=== PATIENT | female | born 1985 ===

== ENCOUNTER 2019-04-24 10:42 | Inpatient (IN) ==
[2019-04-24 11:15] LABS: Basophils % 0.4 % (0.0-0.8); Eosinophils % 0.8 % (0.00-10.9); Hemoglobin 10.3 GM/DL (12.0-16.0); Immature Granulocytes % 0.4 %; Immature Granulocytes Absolute 0.02 #; Lymphocytes # 0.9 10*3/uL (1.4-4.0); Lymphocytes % 18.2 % (21.3-54.2); Mean Corpuscular HGB Conc 33.2 GM/DL (32-36); Mean Corpuscular Volume 91.2 FL (87-102); Monocytes % 7.2 % (1.7-12.7); Platelet Count 169 T/CUMM (130-400); Red Cell Distribution Width 16.3 % (9.3-17.3); White Blood Count 5.1 T/CUMM (4-12)
[2019-04-24 11:34] LABS: INR 0.9; PT Patient Result 9.4 SECS; Partial Thromboplastin Time 25.7 SECS (0-40)
[2019-04-24 11:40] LABS: Alanine Aminotransferase 24 U/L (13-56); Albumin 2.7 G/DL (3.4-5.0); Alkaline Phosphatase 180 U/L (45-117); Aspartate Amino Transferase 31 U/L (0-37); Bilirubin,Total < 0.39 MG/DL (0.2-1.0); Blood Urea Nitrogen 9 MG/DL (7-18); Calcium 8.6 MG/DL (8.5-10.1); Glucose 97 MG/DL (74-106); Osmolality,Calculated 279.3 MOS/KG (273-304); Uric Acid 4.8 MG/DL (2.6-6.0)
[2019-04-24] MEDS ORDERED: FAMOTIDINE 20 MG/2 ML VIAL IV ONE (11:47)
[2019-04-24] MEDS ORDERED: ceFAZolin 2,000 MG in SYRINGE 1 EACH IV ONE (11:47)
[2019-04-24] MEDS ORDERED: CITRIC ACID/SODIUM CITRATE 30 ML UDCUP PO ONE (11:47)
[2019-04-24] MEDS: LACTATED RINGERS 1,000 ML IV SCH ×2 (11:52→13:13)
[2019-04-24] MEDS ORDERED: hydrALAZINE 20 MG/1 ML VIAL IV ONE (12:16)
[2019-04-24] MEDS ORDERED: hydrALAZINE 20 MG/1 ML VIAL ONE (12:18)
[2019-04-24] MEDS ORDERED: OXYTOCIN 10 UNIT/ML VIAL IM ONE (12:30)
[2019-04-24] MEDS ORDERED: OXYTOCIN/LR 30 UNIT/1,000 ML BAG IV ONE (12:30)
[2019-04-24 14:20] LABS: Cord Arterial Blood HCO3 21.1 MMOL/L
[2019-04-24 14:21] LABS: Cord Venous Blood PCO2 45.1 MMHG
[2019-04-24] MEDS ORDERED: ACETAMINOPHEN 325 MG TABLET PO PRN (14:29)
[2019-04-24] MEDS ORDERED: RHO(D) IMMUNE GLOBULIN 300 MCG SYRINGE IM ONE (14:29)
[2019-04-24] MEDS ORDERED: ONDANSETRON 4 MG/2 ML VIAL IV PRN (14:29)
[2019-04-24] MEDS ORDERED: OXYTOCIN/LR 20 UNIT/1,000 ML BAG IV ONE (14:29)
[2019-04-24] MEDS ORDERED: ceFAZolin 1,000 MG in SYRINGE 1 EACH IV SCH (14:30)
[2019-04-24] MEDS ORDERED: BUPIVACAINE 0.5% 50 ML VIAL ONE (14:48)
[2019-04-24] MEDS ORDERED: BUPIVACAINE SPINAL 0.75% 2 ML AMP SPINAL ONE (14:48)
[2019-04-24] MEDS ORDERED: MORPHINE 10 MG/10 ML VIAL ONE (14:48)
[2019-04-24] MEDS ORDERED: LIDOCAINE 1% 5 ML VIAL ONE (14:48)
[2019-04-24] MEDS ORDERED: EPINEPHrine 1 MG/ML VIAL ONE (14:49)
[2019-04-24] MEDS ORDERED: DEXAMETHASONE 4 MG/1 ML VIAL ONE (14:49)
[2019-04-24] MEDS ORDERED: ONDANSETRON 4 MG/2 ML VIAL ONE (14:49)
[2019-04-24] MEDS ORDERED: PHENYLEPHRINE 1 MG/10 ML SYRINGE IV ONE (14:49)
[2019-04-24] MEDS ORDERED: LACTATED RINGERS 1,000 ML IV ONE (14:49)
[2019-04-24] MEDS ORDERED: LACTATED RINGERS 1,000 ML IV SCH (15:00)
[2019-04-24] MEDS ORDERED: MEPERIDINE 25 MG/1 ML VIAL IV PRN (17:57)
[2019-04-24] MEDS ORDERED: diphenhydrAMINE 50 MG/1 ML VIAL IV PRN (17:57)
[2019-04-24 20:53] LABS: Basophils % 0.1 % (0.0-0.8); Hematocrit 30.6 VOL% (35.7-47.0); Immature Granulocytes % 0.3 %; Immature Granulocytes Absolute 0.03 #; Lymphocytes # 0.4 10*3/uL (1.4-4.0); Lymphocytes % 4.3 % (21.3-54.2); Mean Corpuscular HGB Conc 32.7 GM/DL (32-36); Mean Corpuscular Volume 90.8 FL (87-102); Mean Platelet Volume 11.1 FL (9.6-12.0); Monocytes % 5.4 % (1.7-12.7); Neutrophils % 89.9 % (38.7-73.9); Platelet Count 156 T/CUMM (130-400); Red Blood Count 3.37 MC/CUMM (3.8-5.5); Red Cell Distribution Width 16.1 % (9.3-17.3); White Blood Count 9.8 T/CUMM (4-12)
[2019-04-24] MEDS: ceFAZolin 1,000 MG in SYRINGE 1 EACH IV SCH (21:00)
[2019-04-24] MEDS: DOCUSATE SODIUM 100 MG CAPSULE PO SCH (21:00)
[2019-04-24 21:17] LABS: Lymphocytes 2 % (20-55); Macrocytosis Slight; Polychromasia Slight; Segmented Neutrophils 96 % (50-85)
[2019-04-24 21:18] LABS: Platelet Estimate Adequate; Total Cells Counted 100
[2019-04-25] MEDS: ceFAZolin 1,000 MG in SYRINGE 1 EACH IV SCH (05:35)
[2019-04-25 05:56] LABS: Basophils % 0.1 % (0.0-0.8); Hematocrit 27.3 VOL% (35.7-47.0); Hemoglobin 8.8 GM/DL (12.0-16.0); Immature Granulocytes % 0.4 %; Immature Granulocytes Absolute 0.03 #; Lymphocytes # 0.9 10*3/uL (1.4-4.0); Lymphocytes % 11.2 % (21.3-54.2); Mean Corpuscular HGB Conc 32.2 GM/DL (32-36); Mean Corpuscular Volume 92.9 FL (87-102); Mean Platelet Volume 11.2 FL (9.6-12.0); Monocytes % 6.6 % (1.7-12.7); Neutrophils % 81.7 % (38.7-73.9); Platelet Count 149 T/CUMM (130-400); Red Blood Count 2.94 MC/CUMM (3.8-5.5); Red Cell Distribution Width 16.1 % (9.3-17.3)
[2019-04-25] MEDS: MULTIVITAMIN (PRENATAL) TABLET PO SCH (08:40)
[2019-04-25] MEDS: FERROUS SULFATE 325 MG TABLET PO SCH ×2 (08:40→20:22)
[2019-04-25] MEDS: IBUPROFEN 800 MG TABLET PO PRN ×2 (08:41→15:34)
[2019-04-25] MEDS: DOCUSATE SODIUM 100 MG CAPSULE PO SCH ×2 (08:41→20:22)
[2019-04-25] MEDS ORDERED: METOCLOPRAMIDE 10 MG TABLET PO PRN (20:07)
[2019-04-25] MEDS: SIMETHICONE CHEW 80 MG TABLET PO PRN (20:22)
[2019-04-25] MEDS: MAGNESIUM HYDROXIDE SUSP 30 ML UDCUP PO PRN (20:23)
[2019-04-26] MEDS ORDERED: METOCLOPRAMIDE 10 MG TABLET PO SCH (05:00)
[2019-04-26 07:38] VITALS: BP 142/90
[2019-04-26] MEDS: FERROUS SULFATE 325 MG TABLET PO SCH (08:06)
[2019-04-26] MEDS: SIMETHICONE CHEW 80 MG TABLET PO PRN (08:06)
[2019-04-26] MEDS: MULTIVITAMIN (PRENATAL) TABLET PO SCH (08:06)
[2019-04-26] MEDS: MAGNESIUM HYDROXIDE SUSP 30 ML UDCUP PO PRN (08:06)
[2019-04-26] MEDS: DOCUSATE SODIUM 100 MG CAPSULE PO SCH (08:07)
[2019-04-26] MEDS: IBUPROFEN 800 MG TABLET PO PRN (08:07)
[2019-04-26] MEDS ORDERED: DIPH/TET/ACEL PERT BOOSTER VACCINE 0.5 ML VIAL IM ONE ×2 (12:02→12:03)
== END 2019-04-26 12:30 | disposition home or self-care (01) | DRG 788 ==
LOC: N.LDOUT 10:42 → N.LD 10:46 → N.OB 17:07
PROVIDERS: ADMIT Obstetrics & Gynecology; ATTEND Obstetrics & Gynecology
PROC: LDCSECT (ICD-10-PCS; 2019-04-24 12:00)

== ENCOUNTER 2020-03-31 12:11 | Inpatient (IN) ==
[2020-03-31 13:43] LABS: Apearance,Urine CLEAR (Clear); Bilirubin,Urine Negative (Negative); Blood, Urine Negative (Negative); Glucose,Urine (UA) >=500 mg/dL (Negative); Ketones,Urine Negative (Negative); Nitrite,Urine Negative (Negative); Protein,Urine Negative; RBC,Urine <1 /HPF (0-4); Squamous Epithelial Cell,Urine Occasional /HPF (0-10); Urine Color Yellow (Yellow); Urine Specific Gravity 1.014 (1.001-1.035); WBC,Urine <1 /HPF (0-6)
[2020-03-31] MEDS ORDERED: CITRIC ACID/SODIUM CITRATE 30 ML UDCUP PO ONE (14:41)
[2020-03-31] MEDS ORDERED: ceFAZolin 2,000 MG in PREMIX 1 EACH IV ONE (14:41)
[2020-03-31] MEDS ORDERED: FAMOTIDINE 20 MG/2 ML VIAL IV ONE (14:41)
[2020-03-31] MEDS ORDERED: LACTATED RINGERS 1,000 ML IV ONE (14:48)
[2020-03-31 14:58] LABS: Basophils % 0.4 % (0.0-0.8); Eosinophils # 0.1 10*3/uL (0.0-0.87); Eosinophils % 1.1 % (0.00-10.9); Hematocrit 29.7 VOL% (35.7-47.0); Hemoglobin 9.9 GM/DL (12.0-16.0); Immature Granulocytes % 0.5 %; Immature Granulocytes Absolute 0.03 #; Lymphocytes # 0.8 10*3/uL (1.4-4.0); Lymphocytes % 14.9 % (21.3-54.2); Mean Corpuscular HGB Conc 33.3 GM/DL (32-36); Monocytes % 10.7 % (1.7-12.7); Neutrophils % 72.4 % (38.7-73.9); Platelet Count 152 T/CUMM (130-400); Red Blood Count 3.03 MC/CUMM (3.8-5.5); Red Cell Distribution Width 15.2 % (9.3-17.3); White Blood Count 5.6 T/CUMM (4-12)
[2020-03-31] MEDS ORDERED: LACTATED RINGERS 1,000 ML IV SCH ×2 (15:00→18:00)
[2020-03-31 15:12] LABS: INR 0.9; PT Patient Result 10.2 SECS (9.8-11.9); Partial Thromboplastin Time 25.4 SECS (23.9-33.8)
[2020-03-31] MEDS ORDERED: ONDANSETRON 4 MG/2 ML VIAL ONE ×2 (15:12)
[2020-03-31] MEDS ORDERED: BUPIVACAINE SPINAL 0.75% 2 ML AMP SPINAL ONE (15:12)
[2020-03-31] MEDS ORDERED: MORPHINE 10 MG/10 ML VIAL ONE (15:13)
[2020-03-31 15:18] LABS: Albumin 2.5 G/DL (3.4-5.0); Bilirubin,Total 0.5 MG/DL (0.2-1.0); Calcium 8.6 MG/DL (8.5-10.1); Osmolality,Calculated 272.8 MOS/KG (273-304); Total Protein 6.9 G/DL (6.4-8.3)
[2020-03-31] MEDS ORDERED: OXYTOCIN/LR 30 UNIT/1,000 ML BAG IV ONE (15:37)
[2020-03-31] MEDS ORDERED: OXYTOCIN 10 UNIT/ML VIAL IM ONE (15:37)
[2020-03-31] MEDS ORDERED: GLUCAGON 1 MG VIAL IM PRN ×3 (16:12→22:05)
[2020-03-31] MEDS ORDERED: DEXTROSE 50% 25 GM/50 ML VIAL IV PRN ×2 (16:12→22:05)
[2020-03-31] MEDS ORDERED: INSULIN REGULAR 100 UNIT/ML SUBCUT SCH (16:30)
[2020-03-31] MEDS ORDERED: miSOPROStoL 200 MCG TABLET ONE (16:33)
[2020-03-31] MEDS ORDERED: METHYLERGONOVINE 0.2 MG/1 ML AMP ONE (16:34)
[2020-03-31] MEDS ORDERED: TRANEXAMIC ACID 1,000 MG/10 ML VIAL ONE (16:34)
[2020-03-31] MEDS ORDERED: CARBOPROST TROMETHAMINE 250 MCG/ML AMP IM ONE (16:35)
[2020-03-31] MEDS ORDERED: PHENYLEPHRINE 1 MG/10 ML SYRINGE IV ONE (17:52)
[2020-03-31] MEDS ORDERED: fentaNYL 100 MCG/2 ML VIAL ONE (17:53)
[2020-03-31] MEDS ORDERED: SIMETHICONE CHEW 80 MG TABLET PO PRN (17:54)
[2020-03-31] MEDS ORDERED: ACETAMINOPHEN 325 MG TABLET PO PRN (17:54)
[2020-03-31] MEDS ORDERED: DEXTROSE 10% 250 ML BAG IV PRN (17:54)
[2020-03-31] MEDS ORDERED: ONDANSETRON 4 MG/2 ML VIAL IV PRN (17:54)
[2020-03-31] MEDS ORDERED: OXYTOCIN/LR 20 UNIT/1,000 ML BAG IV ONE (17:54)
[2020-03-31] MEDS ORDERED: RHO(D) IMMUNE GLOBULIN 300 MCG SYRINGE IM ONE (17:54)
[2020-03-31 18:15] LABS: Apearance,Urine CLEAR (Clear); Bacteria,Urine Occasional /HPF (Few); Bilirubin,Urine Negative (Negative); Blood, Urine Negative (Negative); Glucose,Urine (UA) Negative (Negative); Ketones,Urine Negative (Negative); Mucus,Urine Occasional /LPF (Occasional); Nitrite,Urine Negative (Negative); Protein,Urine Negative; RBC,Urine 1 /HPF (0-4); Squamous Epithelial Cell,Urine Occasional /HPF (0-10); Urine Color Yellow (Yellow); Urine Specific Gravity 1.011 (1.001-1.035); Urine Urobilinogen < 2.0 EU/DL (0.2-1.0); WBC,Urine <1 /HPF (0-6)
[2020-03-31 18:20] LABS: Cord Arterial Blood HCO3 18.2 MMOL/L
[2020-03-31 18:22] LABS: Cord Venous Blood HCO3 20.3 MMOL/L; Cord Venous Blood PCO2 56.6 MMHG; Cord Venous Blood PO2 28.2
[2020-03-31] MEDS: DOCUSATE SODIUM 100 MG CAPSULE PO SCH (22:14)
[2020-03-31] MEDS ORDERED: diphenhydrAMINE 50 MG/1 ML VIAL IV PRN (22:36)
[2020-04-01] MEDS: ceFAZolin 1,000 MG in SYRINGE 1 EACH IV SCH ×2 (00:20→08:45)
[2020-04-01 05:38] LABS: Basophils % 0.2 % (0.0-0.8); Eosinophils % 0.5 % (0.00-10.9); Hematocrit 29.3 VOL% (35.7-47.0); Immature Granulocytes % 0.3 %; Immature Granulocytes Absolute 0.03 #; Lymphocytes # 0.9 10*3/uL (1.4-4.0); Mean Corpuscular HGB Conc 34.1 GM/DL (32-36); Mean Corpuscular Volume 95.4 FL (87-102); Mean Platelet Volume 12.1 FL (9.6-12.0); Monocytes % 6.4 % (1.7-12.7); Neutrophils % 82.6 % (38.7-73.9); Platelet Count 141 T/CUMM (130-400); Red Blood Count 3.07 MC/CUMM (3.8-5.5); Red Cell Distribution Width 14.9 % (9.3-17.3); White Blood Count 8.7 T/CUMM (4-12)
[2020-04-01 07:53] LABS: SARS-CoV-2 Total Ab Interp Reactive
[2020-04-01] MEDS: INSULIN REGULAR 100 UNIT/ML SUBCUT SCH ×4 (08:08→23:03)
[2020-04-01] MEDS: MAGNESIUM HYDROXIDE SUSP 30 ML UDCUP PO PRN ×2 (09:19→21:49)
[2020-04-01] MEDS: DOCUSATE SODIUM 100 MG CAPSULE PO SCH ×2 (09:19→21:50)
[2020-04-01] MEDS: MULTIVITAMIN (PRENATAL) TABLET PO SCH (09:19)
[2020-04-01] MEDS: METOCLOPRAMIDE 10 MG TABLET PO SCH ×2 (13:35→21:51)
[2020-04-01] MEDS: IBUPROFEN 800 MG TABLET PO PRN (21:51)
[2020-04-02] MEDS: METOCLOPRAMIDE 10 MG TABLET PO SCH ×3 (06:19→21:08)
[2020-04-02] MEDS: IBUPROFEN 800 MG TABLET PO PRN (06:19)
[2020-04-02] MEDS: INSULIN REGULAR 100 UNIT/ML SUBCUT SCH ×3 (07:50→16:52)
[2020-04-02] MEDS: MAGNESIUM HYDROXIDE SUSP 30 ML UDCUP PO PRN (08:58)
[2020-04-02] MEDS: MULTIVITAMIN (PRENATAL) TABLET PO SCH (08:58)
[2020-04-02] MEDS: DOCUSATE SODIUM 100 MG CAPSULE PO SCH ×3 (08:58→21:03)
[2020-04-03] MEDS: METOCLOPRAMIDE 10 MG TABLET PO SCH (05:01)
[2020-04-03] MEDS: INSULIN REGULAR 100 UNIT/ML SUBCUT SCH ×2 (05:01→10:54)
[2020-04-03] MEDS: MULTIVITAMIN (PRENATAL) TABLET PO SCH (08:25)
[2020-04-03] MEDS: DOCUSATE SODIUM 100 MG CAPSULE PO SCH (08:25)
[2020-04-03] MEDS: IBUPROFEN 800 MG TABLET PO PRN (08:25)
[2020-04-03 10:43] VITALS: BP 147/83
== END 2020-04-03 11:50 | disposition home or self-care (01) | DRG 785 ==
LOC: N.LDOUT 12:11 → N.LD 12:13 → N.OB 21:25
PROVIDERS: ADMIT Obstetrics & Gynecology; ATTEND Obstetrics & Gynecology